=== PATIENT | male | born 1975 | race Caucasian/White ===

== ENCOUNTER 2024-08-30 04:49 | Emergency (ER) | payer SELFPAY ==
--- NOTE | ~2024-08-30 | XR_ITS ---
CLINICAL HISTORY: SOB 1 view chest x-ray Comparison: None Findings: No consolidation or effusion. Normal size heart. No acute fracture. IMPRESSION: 1. No acute findings. This document has been electronically signed by: Kev Lara MD on 08/30/2024 05:33:21
[2024-08-30 04:55] VITALS: BP 145/90; PULSE 79; RESP 20; TEMP 36.5; O2SAT 98; BMI 30.8
[2024-08-30 05:18] VITALS: BP 93/65; PULSE 88; RESP 22; TEMP 36.7; O2SAT 97
[2024-08-30 05:23] VITALS: O2SAT 97
[2024-08-30 05:44] LABS: IDNOW Serial# 16C4AD1C; Influenza A Positive (Negative)
[2024-08-30 05:44] LABS: COVID-19 Test Negative (Negative); IDNOW Serial# 08D9AD1C
[2024-08-30 05:47] LABS: Influenza B2 Negative (Negative)
--- NOTE | 2024-08-30 06:11 | ED.GENADULT ---
HPI - General Adult General Chief complaint: Upper Respiratory Symptoms Stated complaint: flu like Time Seen by Provider: 08/30/24 06:11 History of Present Illness ED Provider: Dontae SHORE narrative: The patient is a 49-year-old male who says that he started to feel unwell on Thursday evening with sweats and chills. He has also experienced diarrhea. 3 days ago on Thursday he took a home COVID test that he says was positive. He had diarrhea yesterday and also developed nausea and vomiting. This morning he woke up at around 03:00 very nauseated and vomited a few times. He came to the emergency room primarily because of the nausea. He thinks he has had a fever but he has not taken his temperature. Related Data Previous Rx's ?Medication ?Instructions ?Recorded ondansetron 4 mg disintegrating 4 mg PO Q6H PRN nausea and 08/30/24 tablet vomiting #10 tabs Allergies Allergy/AdvReac Type Severity Reaction Status Date / Time No Known Allergies Allergy Verified 08/30/24 04:57 Review of Systems Review of Systems: Yes all other systems are reviewed and are negative [facility] Social History Social History Smoked in Last 30 Days: No Substance Use Type: Marijuana Advance Directives: No Advance Directives Information Provided: Yes Do you have a plan to hurt others: No Plan Physical Exam ED Vital Signs: Vital Signs - 24 hr 08/30/24 04:55 08/30/24 05:18 08/30/24 05:23 Temperature 97.7 F 98.0 F Pulse Rate 79 88 Respiratory Rate 20 22 H Blood Pressure 145/90 H 93/65 Pulse Oximetry 98 97 97 Oxygen Delivery Method Room Air Room Air Room Air BMI result Body Mass Index 30.8 Const Other: The patient is a 49-year-old male who looks mildly unwell. He seems somewhat restless. HENMT Other: Face is symmetrical. Mucous membranes moist. Eyes General: appearance normal, both eyes and all related structures Neck Neck: Yes full ROM and Yes no lymphadenopathy Resp Effort & Inspection: normal respiratory effort Auscultation: clear to auscultation bilaterally Cardio Rate: regular rate Rhythm: regular rhythm Heart sounds: S1 normal heart sound present and S2 normal heart sound present GI Other: Abdomen is soft and nontender Skin Other: Skin is dry and unremarkable Neuro Other: The patient is awake and alert with a normal mental status. Cranial nerves are grossly intact. He moves his extremities normally with normal strength and coordination. He seems restless but otherwise neurologically intact. Extrem Other: No peripheral edema Medications Administered Discontinued Medications Generic Name Dose Route Start Last Admin Trade Name Dasha PRN Reason Stop Dose Admin Ondansetron HCl 4 mg 08/30/24 06:15 08/30/24 06:20 Ondansetron Odt 4 Mg Tab.Ramonedis PIERCEINGU 08/30/24 06:16 4 mg ONCE ONE Administration Medical Decision Making Medical Decision Making [facility] Narrative: The patient is a 49-year-old male who was felt unwell for about 3-1/2 days. He has had a general sense of illness. He has had gastrointestinal symptoms of loose stools and nausea and vomiting. He says that he took a home COVID test 3 days ago on Thursday that he says was positive. Here in the emergency room today he is testing positive for influenza but not testing positive for COVID. I suspect he has influenza. He seems to be having primarily gastrointestinal manifestations of his influenza. The patient was given 4 mg of oral dissolving ondansetron (he preferred this to any injections). When I next went to check on the patient he had left the emergency room without notification. I attempted to call him on the phone but my call went to [email or web address]. I also tried to reach his contact listed in his chart. This person is Maribeth Lennon. She called the emergency room and identified herself as the patient's girlfriend. I explained that the patient had left prior to completing treatment. I informed her that I would be sending a prescription for ondansetron to the [facility] on [address] in [place]. Lab Data Labs: Lab Results 08/30/24 08/30/24 Range/Units 05:25 05:26 COVID-19 (RACHELLE) Negative (Negative) COVID-19 Clin Com See Note Influenza Type A (RENÉE) Positive A (Negative) Influenza Type B (ERNÉE) Negative (Negative) Influenza A & B Note See Note Discharge Plan Discharge Clinical Impression: Influenza A, Nausea and vomiting Patient Disposition: Left W/O Completing Treatment Prescriptions: New ondansetron 4 mg tablet,disintegrating 4 mg PO Q6H PRN (Reason: nausea and vomiting) Qty: 10 0RF
[2024-08-30] MEDS: Ondansetron ODT 4 MG TAB.RAPDIS TRANSLINGU (06:20)
--- NOTE | 2024-08-30 08:13 | PC.NURSE ---
Pt left without completing treatment. MD Leach and Charge nurse aware. No IV line on pt.
== END 2024-08-30 08:12 | disposition left against medical advice (07) ==
PROVIDERS: Emergency Provider Emergency Medicine
DX: J10.1 Influenza due to other identified influenza virus with other respiratory manifestations (principal); R11.2 Nausea with vomiting, unspecified; Z79.899 Other long term (current) drug therapy; Z11.52 Encounter for screening for COVID-19
CPT/HCPCS: 71045; 87502; 87635; 99283; 99284

== ENCOUNTER → 2024-08-30 05:05 | Outpatient (BNV) | payer SELFPAY | PROVIDERS: Visit Provider Radiology Diagnostic Radiology | DX: R06.02 Shortness of breath (principal) | CPT/HCPCS: 71045 ==